=== PATIENT | male | born 1965 | race Caucasian/White ===

== ENCOUNTER 2018-12-14 08:34 | Day surgery (SDC) | payer OTHER ==
[~2018-12-14 08:34] MED LIST: NACL 0.9% 1000 ML 1,000 ML IV SCH
--- NOTE | 2018-12-14 10:02 | Anesthesia Consultation ---
Anesthesia Consult and Med Hx Date of service: 12/14/18 - Airway Anesthetic Teeth Evaluation: Good ROM Head & Neck: Adequate Mental/Hyoid Distance: Adequate Mallampati Class: Class II Intubation Access Assessment: Good - Pulmonary Exam CTA: Yes - Cardiac Exam Cardiac Exam: RRR - Pre-Operative Health Status ASA Pre-Surgery Classification: ASA2 Proposed Anesthetic Plan: General - Cardiovascular System Hx Hypertension: Yes - Endocrine Hx Non-Insulin Dependent Diabetes: Yes
--- NOTE | 2018-12-14 10:02 | Anesthesia Day of Surgery ---
Anesthesia Day of Surgery - Day of Surgery Patient Examined: Yes Patient H&P Reviewed: Yes Patient is NPO: Yes
[2018-12-14] MEDS ORDERED: DIPRIVAN 10 MG/ML IV ONE ×2 (10:06→10:07)
[2018-12-14] MEDS ORDERED: XYLOCAINE MPF 2% ONE (10:06)
--- NOTE | 2018-12-14 10:54 | Short Stay Summary ---
Short Stay Documentation Date of service: 12/14/18 Narrative H&P: The patient presents for screening colonoscopy. Average risks. No prior studies. - History Past Medical History: hypertension Past Surgical History: No surgical history Social history: no significant social history, , lives with family, no smoking, no alcohol abuse - Allergies and Medications Current Medications: Allergies No Known Allergies Allergy (Verified 12/14/18 09:06) Home Medications Medication Instructions Recorded Confirmed Last Taken Type amLODIPine 10 mg PO DAILY 12/13/18 12/14/18 12/14/18 History Fenofibrate 145 mg PO DAILY 12/14/18 12/14/18 12/13/18 History metFORMIN 500 mg PO BID 12/14/18 12/14/18 12/13/18 History Active Medications Sodium Chloride (Nacl 0.9% 1000 Ml) 1,000 mls @ 50 mls/hr IV DIRECT PILY Last Admin: 12/14/18 09:42 Dose: 50 mls/hr Documented by: - Physical exam General appearance: no acute distress, well-nourished Lungs: Clear to auscultation, Normal air movement Breasts: deferred Heart: Regular rate, Normal S1, Normal S2, No murmurs, Murmur, no Gallops Gastrointestinal: normoactive bowel sounds, no tenderness, no distended, no masses, no guarding, no organomegaly, no obese Male Genitourinary: deferred Rectal Exam: normal exam-external/orifice, no mass Extremities: no ischemia, pulses intact, pulses symmetrical, No edema, normal temperature, normal color, Full ROM Neurological: Normal gait, Normal speech, Strength at 5/5 X4 ext, Normal tone, Sensation intact, Cranial nerves 3-12 NL - Brief post op/procedure progress note Date of procedure: 12/14/18 Findings: report dictated. Estimated blood loss: none Pathology: list (rectal polyp) Specimen disposition: to lab Condition: stable - Disposition Condition at discharge: Good Disposition: DC-01 TO HOME OR SELFCARE - Discharge Diagnoses (1) Colon cancer screening Status: Acute Short Stay Discharge Plan Activity: other (no driving for 24 hours.) Weight Bearing Status: Full Weight Bearing Diet: regular Follow up with: ROBI JIMENEZ MD [Primary Care Provider] - 7 Days
--- NOTE | 2018-12-14 10:57 | Operative Report ---
Operative Report Operative Report: Date of procedure: 12/14/2018 Preprocedure diagnosis: Colon cancer screening. No prior studies. Average ri sk. Post procedure diagnosis: 5 mm colon polyp in the rectum. Procedure: Colonoscopy to the cecum with cold forceps polypectomy. Endoscopist: Dr. Cruz Anesthesia: Monitored anesthesia care per anesthesia department Estimated blood loss: 0 Medications: Monitored anesthesia care. See separate report by anesthesia for details. After careful discussion of the nature and purpose of the procedure as well as details of the technique risks benefits and alternatives the patient gave consent. Please see recent history and physical from the office. The patient was placed in the left lateral decubitus position and medicated per anesthesia. A rectal exam was performed sphincter tone was normal there were no masses palpable. The Xcelaeron 570 scope was passed transanally and advanced under continuous direct vision without difficulty to the cecum. The colon was well prepared. The cecum was normal. The ascending colon was normal and on forward and retroflexed views. The transverse colon, descending colon, and sigmoid colon were normal. The rectum revealed a 5 mm pedunculated polyp in the distal third. The polyp was removed with 2 bites of the cold forceps completely. Rectum otherwise was normal on forward and retroflexed views. The procedure was well- tolerated overall and the patient was observed in recovery. Conclusions: Benign appearing rectal polyp. Plan: Await pathology. Follow-up colonoscopy in 5 years or 10 years depending upon the pathology report. Signed electronically: Daljit Cruz M.D.
[2018-12-14 11:24] VITALS: BP 95/69
== END 2018-12-14 08:35 | disposition home or self-care (01) ==
LOC: GIO 08:34
PROVIDERS: ATTEND Internal Medicine Gastroenterology
DX: Z12.11 Encounter for screening for malignant neoplasm of colon (principal); K62.1 Rectal polyp; I10 Essential (primary) hypertension; E11.9 Type 2 diabetes mellitus without complications; E78.00 Pure hypercholesterolemia, unspecified; Z79.84 Long term (current) use of oral hypoglycemic drugs; Z79.899 Other long term (current) drug therapy
CPT/HCPCS: 45380; 82962; 88305; J2704; J7030